=== PATIENT | female | born 1995 | race Caucasian/White ===

== ENCOUNTER 2017-03-02 13:47 | Emergency (ER) | payer MEDICAID ==
[2017-03-02 14:03] VITALS: BP 124/59
--- NOTE | 2017-03-02 14:13 | ER Document Report ---
HPI - HPI Patient complains to provider of: posterior occiput headache Onset: Yesterday - A.m. Onset/Duration: Gradual Pain Level: 4 Context: 21-year-old female with a history of migraines woke up yesterday morning with the posterior occipital headache level 1-1/2/5 progressed to 4-1/2 over the day. She is concerned that it is more painful than most of her migraines which caused her inability to sleep last night, although it is in the same location. She also states that is radiating further into her scalp and lower into her cervical spine is usual. No fever or chills. No IV drug use. LMP 2 weeks ago. She sees a neurologist Dr. Julio. Had some bilateral eye blurriness which she gets occasionally with her migraines, had this for 1 hour this morning. Associated Symptoms: None Exacerbated by: Movement - of neck, no position decreases the headache Relieved by: Denies Similar symptoms previously: Yes Recently seen / treated by doctor: No - ROS ROS below otherwise negative: Yes Systems Reviewed and Negative: Yes All other systems reviewed and negative - REPRODUCTIVE Reproductive: DENIES: : - DERM Skin Color: Normal Past Medical History - General Information source: Patient - Social History Smoking Status: Never Smoker Frequency of alcohol use: None Drug Abuse: None Lives with: Spouse/Significant other Family History: Reviewed & Not Pertinent Patient has suicidal ideation: No Patient has homicidal ideation: No Neurological Medical History: Reports: Hx Migraine Renal/ Medical History: Denies: Hx Peritoneal Dialysis Surgical Hx: Negative - Immunizations Immunizations up to date: Yes Hx Diphtheria, Pertussis, Tetanus Vaccination: Yes Vertical Provider Document - CONSTITUTIONAL Agree With Documented VS: Yes Exam Limitations: No Limitations - INFECTION CONTROL TRAVEL OUTSIDE OF THE [place] IN LAST 30 DAYS: No - HEENT HEENT: Atraumatic, Normocephalic, PERRLA. negative: Conjuctival Injection, Pharyngeal Erythema - NECK Neck: Supple - tender bilateral cervical muscles but also midline - RESPIRATORY Respiratory: Breath Sounds Normal, No Respiratory Distress O2 Sat by Pulse Oximetry: 100 - CARDIOVASCULAR Cardiovascular: Regular Rate, Regular Rhythm - GI/ABDOMEN Gastrointestinal: Abdomen Soft, Abdomen Non-Tender, No Organomegaly - MUSCULOSKELETAL/EXTREMETIES Musculoskeletal/Extremeties: LENNY GONZALEZ - NEURO Level of Consciousness: Awake, Alert, Appropriate Motor/Sensory: No Motor Deficit, No Sensory Deficit - DERM Integumentary: Warm, Dry, No Rash Course - Re-evaluation Re-evalutation: 03/02/17 16:22 Headache level is 1.5/5, she feels like she can go home. test is negative - Vital Signs Vital signs: Temp Pulse Resp BP Pulse Ox 98.2 F 105 H 20 124/59 L 100 03/02/17 14:01 03/02/17 14:01 03/02/17 14:01 03/02/17 14:01 03/02/17 14:01 Discharge - Discharge Clinical Impression: Headache Qualifiers: Headache type: unspecified Headache chronicity pattern: unspecified pattern Intractability: not intractable Qualified Code(s): R51 - Headache Condition: Good Disposition: HOME, SELF-CARE Instructions: Use of Diphenhydramine, Intravenous Compazine for Headaches ([facility]) , Headache ([facility]) Additional Instructions: to er if worse see dr. julio for headache follow up Please complete the patient satisfaction survey if you get one, and return it.. If you do not receive a survey, then you can go to the [facility] website, [email or web address] and place your comments about your very good care. Thank you very much. It was a pleasure being your medical provider today. Referrals: MAHNAZ JULIO MD [EMERITUS] - 03/05/17
[2017-03-02] MEDS ORDERED: PROCHLORPERAZINE EDISYLATE INJ 10 MG/2 ML VIAL IV ONE (14:22)
[2017-03-02] MEDS ORDERED: DIPHENHYDRAMINE HCL 50 MG/ML VIAL IV ONE (14:22)
[2017-03-02] MEDS ORDERED: NORMAL SALINE 1000 ML 1,000 ML IV ONE (14:25)
== END 2017-03-02 16:37 | disposition home or self-care (01) ==
LOC: ER 13:47
DX: R51 Headache (principal)
CPT/HCPCS: 99284; 96374; 96375; 81025; J1200; J0780; J7030

== ENCOUNTER → 2017-03-16 | Outpatient (CLI) | payer MEDICAID ==
--- NOTE | 2017-03-16 19:21 | RADIOLOGY REPORT (SQ) ---
EXAM DESCRIPTION: U/S NON-OB PELVIS TV W/O DOP COMPLETED DATE/TIME: 03/16/2017 3:28 pm REASON FOR STUDY: PELVIC AND PERINEAL PAIN R10.2 PELVIC AND PERINEAL PAIN COMPARISON: None. TECHNIQUE: Dynamic and static grayscale images acquired of the pelvis via transvaginal approach and recorded on PACS. Additional selected color Doppler and spectral images recorded. LIMITATIONS: None. FINDINGS: UTERUS: Contour normal. No mass. ENDOMETRIAL STRIPE: No focal or generalized thickening. No masses. CERVIX: No nabothian cysts. RIGHT OVARY: No abnormal masses. RIGHT OVARY DOPPLER: Normal arterial vascular flow without evidence for torsion. LEFT OVARY: No abnormal masses. LEFT OVARY DOPPLER: Normal arterial vascular flow without evidence for torsion. FREE FLUID: None noted. OTHER: No other significant finding. MEASUREMENTS: UTERUS: 3.1 x 4.4 x 6.7 cm. ENDOMETRIAL STRIPE: 6 mm. RIGHT OVARY: 1.5 x 1.8 x 2.1 cm. LEFT OVARY: 2.0 x 2.0 x 2.2 cm. IMPRESSION: NORMAL TRANSVAGINAL PELVIC ULTRASOUND. TECHNICAL DOCUMENTATION: JOB ID: [id number] Cover- All Rights Reserved
== END ==
LOC: RAD 14:52
PROVIDERS: ATTEND Physician Assistant
DX: R10.2 Pelvic and perineal pain (principal)
CPT/HCPCS: 76830